=== PATIENT | male | born 1990 | race African-American/Black ===

== ENCOUNTER 2020-05-01 15:12 | Emergency (ER) | payer SELFPAY ==
[2020-05-01] MEDS ORDERED: LIDOCAINE 1% INJ-PF (10 MG/ML) 30 ML SDV INJ ONE (15:35)
--- NOTE | 2020-05-01 18:17 | ER Document Report ---
ED Hand/Wrist Injury - General Chief Complaint: Laceration Stated Complaint: CUT FINGER TIPS Time Seen by Provider: 05/01/20 15:30 Primary Care Provider: LISA SUTTON [Primary Care Provider] - Follow up as needed Mode of Arrival: Ambulatory Information source: Patient Notes: Patient is a 30-year-old male comes emergency room complaining of laceration to right index finger. Patient states he was using the old time razor blades that are double bladed he was attempting to cut a plastic bag and could not get the correct angle so we have tried to adjust it would not cut and he pushed down with his right index finger cutting the pad of the right distal tip. Patient states he could not get it to quit bleeding so he came to ER for reevaluation. He denies of being on any blood thinners. He denies any other medical problems. Patient states he had a tetanus shot less than 2 years ago when he was incarcerated is when he received it. He admits to smoking back in today and marijuana. - HPI Injury to: Index finger Onset: Just prior to arrival Where: Home Timing: Constant, Still present Quality of pain: Throbbing Severity: Moderate Pain Level: 3 Context: Laceration Past Medical History - General Information source: Patient - Social History Smoking Status: Current Every Day Smoker Cigarette use (# per day): Yes Chew tobacco use (# tins/day): No Smoking Education Provided: No Frequency of alcohol use: None Drug Abuse: Marijuana Lives with: Family Family History: Reviewed & Not Pertinent Review of Systems - Review of Systems Constitutional: No symptoms reported EENT: No symptoms reported Cardiovascular: No symptoms reported Respiratory: No symptoms reported Gastrointestinal: No symptoms reported Genitourinary: No symptoms reported Male Genitourinary: No symptoms reported Musculoskeletal: No symptoms reported Skin: Other - Laceration Hematologic/Lymphatic: No symptoms reported Neurological/Psychological: No symptoms reported -: Yes All other systems reviewed and negative Physical Exam - Vital signs Vitals: Temp Pulse Resp BP Pulse Ox 97.6 F 87 16 126/62 H 97 05/01/20 15:20 05/01/20 15:20 05/01/20 15:20 05/01/20 15:20 05/01/20 15:20 Interpretation: Normal - Notes Notes: PHYSICAL EXAMINATION: GENERAL: Well-appearing, well-nourished and in no acute distress. LUNGS: Breath sounds clear to auscultation bilaterally and equal. No wheezes rales or rhonchi. HEART: Regular rate and rhythm without murmurs ABDOMEN: Soft, nontender, nondistended abdomen. No guarding, no rebound. No masses appreciated. Musculoskeletal: Examination patient's area concern is his right index finger distal pad at the tip shows her to be about a 1 and half centimeter linear laceration that appears to be deep. Palpation of the area it does show the patient has mild tenderness also has good cap refill in the nailbed of that finger. Patient has total range of motion at the distal tip of the right index finger. Also has good strength against resistance with the distal tip no sign of any type of tendon or ligament damage. NEUROLOGICAL: Normal speech, normal gait. Normal sensory, motor exams PSYCH: Normal mood, normal affect. SKIN: See musculoskeletal above for full detail Course - Re-evaluation Re-evalutation: 05/01/20 18:23 Patient was second of 2 hand lacerations that came into the same time. I saw both patients and informed this patient that it would be a while since there was a procedure being done ahead of me in our procedure room and then it would be my turn to do the other person and that I would get him ready. Evidently patient felt like the wait was too long and he eloped between the time of the my hand patient leaving and of a setting up the room by the nursing staff in order to accommodate his wound. - Vital Signs Vital signs: Temp Pulse Resp BP Pulse Ox 97.6 F 87 16 126/62 H 97 05/01/20 15:30 05/01/20 15:20 05/01/20 15:20 05/01/20 15:20 05/01/20 15:20 - Laboratory Results Critical Laboratory Results Reviewed: No Critical Results - Radiology Results Critical Radiology Results Reviewed: No Critical Results Discharge - Discharge Clinical Impression: Finger laceration Qualifiers: Encounter type: initial encounter Finger: index finger Damage to nail status: without damage Foreign body presence: without foreign body Laterality: right Qualified Code(s): S61.210A - Laceration without foreign body of right index finger without damage to nail, initial encounter Disposition: ELOPED Referrals: LOCALMD,NO [Primary Care Provider] - Follow up as needed
== END 2020-05-01 18:07 | disposition left against medical advice (07) ==
LOC: ER 15:12
DX: S61.210A Laceration without foreign body of right index finger without damage to nail, initial encounter (principal); W26.8XXA Contact with other sharp object(s), not elsewhere classified, initial encounter; Y93.89 Activity, other specified; Y92.009 Unspecified place in unspecified non-institutional (private) residence as the place of occurrence of the external cause; F17.210 Nicotine dependence, cigarettes, uncomplicated; F12.10 Cannabis abuse, uncomplicated; Z53.29 Procedure and treatment not carried out because of patient's decision for other reasons
CPT/HCPCS: 99281

== ENCOUNTER 2020-05-02 07:23 | Emergency (ER) | payer SELFPAY ==
[2020-05-02 07:34] VITALS: BP 115/83
[2020-05-02] MEDS ORDERED: LIDOCAINE 1% INJ-PF (10 MG/ML) 30 ML SDV INJ ONE (07:59)
--- NOTE | 2020-05-02 08:04 | ER Document Report ---
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 Patient states that he was cutting vegetables in his kitchen using a razor blade and "slipped". He apparently came out of the emergency department sat here for several hours and waiting area but because he was not seen he left the premises and has returned at this time requesting attention. Past Medical History - General Information source: Patient - Social History Smoking Status: Smoker,Current Status Unk Frequency of alcohol use: Occasional Drug Abuse: None Lives with: Alone Family History: Reviewed & Not Pertinent - Medical History Medical History: Negative Surgical Hx: Negative Review of Systems - Review of Systems Notes: Constitutional: Negative for fever. HENT: Negative for sore throat. Eyes: Negative for visual changes. Cardiovascular: Negative for chest pain. Respiratory: Negative for shortness of breath. Gastrointestinal: Negative for abdominal pain, vomiting or diarrhea. Genitourinary: Negative for dysuria. Musculoskeletal: Negative for back pain. Skin: Negative for rash. Neurological: Negative for headaches, weakness or numbness. 10 point ROS negative except as marked above and in HPI. Physical Exam - Vital signs Vitals: Temp Pulse Resp BP Pulse Ox 97.5 F 90 14 115/83 99 05/02/20 07:33 05/02/20 07:33 05/02/20 07:33 05/02/20 07:33 05/02/20 07:33 - Notes Notes: GENERAL: Somewhat obese male approximately stated age appearing in no acute distress. SKIN: Good turgor no rashes. HEAD: Normocephalic atraumatic. EYES: PERRLA. EOMI. Conjunctivae and sclerae clear. NECK: Supple. No masses or thyromegaly. No adenopathy. Carotids 2+ without bruits. No JVD. BACK: Symmetrical without tenderness. CHEST: Respirations unlabored. Breath sounds clear and symmetrical. HEART: Regular rhythm. No murmur gallop or rub. ABDOMEN: Soft nontender without masses, organomegaly or rebound. Bowel sounds normally active. No bruits. EXTREMITIES: 2.0 cm jagged laceration over the volar surface of the distal phalanx of the right index finger. There is no active bleeding. Crusted blood around the wound. The wound appears clean and there is no drainage. No edema. No calf tenderness. Cap refill less than 1.5 seconds. Dorsalis pedis and posterior tibial pulses 3+ and symmetrical. NEUROLOGICAL: Alert and oriented x3. Nonfocal. PSYCHIATRIC: Appropriate affect. Course - Re-evaluation Re-evalutation: 05/02/20 09:49 Patient indicates his tetanus status is current. The wound has been sutured. Findings, clinical impression and plan of treatment have been discussed with patient/family. Understanding of current findings and recommendations has been acknowledged by them and there is agreement regarding disposition and follow-up. - Vital Signs Vital signs: Temp Pulse Resp BP Pulse Ox 97.5 F 90 14 115/83 99 05/02/20 07:33 05/02/20 07:33 05/02/20 07:33 05/02/20 07:33 05/02/20 07:33 - Laboratory Results Critical Laboratory Results Reviewed: No Critical Results - Radiology Results Critical Radiology Results Reviewed: No Critical Results Procedures - Laceration/Wound Repair Right Distal Hand 2nd digit Time completed: 09:35 Wound length (cm): 2.0 Wound's Depth, Shape: Into muscle, Flap Laceration pre-procedure: Sterile PPE donned, Betadine prep applied, Sterile drapes applied Anesthetic type: 1% Lidocaine Volume Anesthetic (mLs): 3 - Digital block Wound explored: Clean Irrigated w/ Saline (mLs): 500 Wound Repaired With: Sutures Suture Size/Type: 5:0, Ethilon Number of Sutures: 4 Layer Closure?: No Post-procedure wound care: Sterile dressing applied Discharge - Discharge Clinical Impression: Laceration right hand Condition: Stable Disposition: HOME, SELF-CARE Instructions: Antibiotic Ointment Protection ([facility]), Laceration Care ([facility]), Prophylactic Antibiotic ([facility]) Additional Instructions: Return here as needed for any signs of infection. Take prescribed medications as instructed. You will need to have stitches removed here in emergency department or by private physician within the next 7 to 10 days. Work note has been provided for the next 3 days. Prescriptions: Ibuprofen [Motrin 600 mg Tablet] 600 mg PO Q8HP PRN #90 tablet PRN Reason: Pain Scale Per Md Cephalexin Monohydrate [Keflex 500 mg Capsule] 500 mg PO Q6H 5 Days capsule Forms: Return to Work Referrals: LOCAL,NO [NO LOCAL MD] - Follow up as needed [facility] [Provider Group] - Follow up as needed
== END 2020-05-02 10:23 | disposition home or self-care (01) ==
LOC: ER 07:23
DX: S61.411A Laceration without foreign body of right hand, initial encounter (principal); W26.0XXA Contact with knife, initial encounter; Y93.G1 Activity, food preparation and clean up
CPT/HCPCS: 99283; 12001; J3490